=== PATIENT | female | born 1970 | race American Indian/Alaskan Native ===

== ENCOUNTER 2023-03-20 10:55 | Emergency (ER) | payer OTHER ==
[~2023-03-20] VITALS: Ht 152.4 cm; Wt 68.0 kg
[2023-03-20 11:09] VITALS: BP_SYST 147; PULSE 73; RESP 16; TEMP 98; O2SAT 98
[2023-03-20] MEDS ORDERED: IBUP-1969 PO (12:24)
[2023-03-20] MEDS ORDERED: TRAM50TA2 PO (12:24)
[2023-03-20] MEDS ORDERED: IBUPROFEN 800 MG TABLET PO ONE (12:30)
[2023-03-20] MEDS ORDERED: HYDROcodone/ACETAMIN 7.5-325 MG TAB PO ONE (12:30)
[2023-03-20 12:45] VITALS: O2SAT 98
[2023-03-20 12:48] VITALS: BP_SYST 137; PULSE 76; RESP 16; TEMP 97.9
== END 2023-03-20 12:45 | disposition home or self-care (01) ==
LOC: SED 10:55
DX: S13.8XXA Sprain of joints and ligaments of other parts of neck, initial encounter (principal); S00.03XA Contusion of scalp, initial encounter; Z79.899 Other long term (current) drug therapy; W21.05XA Struck by basketball, initial encounter; Y93.67 Activity, basketball; Y92.89 Other specified places as the place of occurrence of the external cause; Y99.8 Other external cause status
CPT/HCPCS: 70450-TC; 72125-TC; 76376; 99284